=== PATIENT | female | born 1945 | race Caucasian/White ===

== ENCOUNTER 2017-05-18 16:17 | Emergency (ER) | payer MEDICARE, OTHER ==
[~2017-05-18] VITALS: Ht 154.9 cm; Wt 68.5 kg
--- NOTE | 2017-05-18 16:23 | NUR ---
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 DENIES LOC
--- NOTE | 2017-05-18 16:49 | NUR ---
DATABASE MANAGEMENT SPECIALIST AT BEDSIDE
--- NOTE | 2017-05-18 17:23 | NUR ---
Patient discharged to home in stable condition. Written and verbal after care instructions given. Patient verbalizes understanding of instruction.
[2017-05-18 17:31] VITALS: BP 122/65
== END 2017-05-18 17:56 | disposition home or self-care (01) ==
LOC: ER 16:20
DX: S52.501A Unspecified fracture of the lower end of right radius, initial encounter for closed fracture (principal); W01.0XXA Fall on same level from slipping, tripping and stumbling without subsequent striking against object, initial encounter; Y92.89 Other specified places as the place of occurrence of the external cause; Y93.89 Activity, other specified; Y99.8 Other external cause status
CPT/HCPCS: 29125; 73030; 73090; 73130; 96372; 99284; A4606; J1885; Q0162; Z7610

== ENCOUNTER 2018-09-26 13:55 | Emergency (ER) | payer MEDICARE, OTHER ==
[~2018-09-26] VITALS: Ht 154.9 cm; Wt 63.5 kg
--- NOTE | 2018-09-26 14:30 | NUR ---
presented to the ER c/o headache on and off. Alert and oriented x 4, verbally responsive. ambulatory, stable. connected to the monitor and pulse ox. Kept comfortable. will continue to monitor accordingly.
--- NOTE | 2018-09-26 15:15 | NUR ---
PT WHEELED VIA [place] FOR CT SCAN.
[2018-09-26 16:17] VITALS: BP 140/66
--- NOTE | 2018-09-26 16:18 | NUR ---
Patient discharged to home in stable condition. Written and verbal after care instructions given. Patient verbalizes understanding of instruction.
== END 2018-09-26 16:18 | disposition home or self-care (01) ==
LOC: ER 13:56
DX: G43.909 Migraine, unspecified, not intractable, without status migrainosus (principal); E03.9 Hypothyroidism, unspecified
CPT/HCPCS: 70450; 99284; A4606

== ENCOUNTER 2019-03-17 09:56 | Outpatient (CLI) | payer MEDICARE, OTHER ==
[2019-03-17] MEDS ORDERED: REGADENOSON 0.4 MG/5 ML DISP.SYRIN IVP ONE (11:00)
== END 2019-03-17 23:59 | disposition home or self-care (01) ==
LOC: RAD 09:56
PROVIDERS: ATTEND Internal Medicine Cardiovascular Disease
DX: R07.9 Chest pain, unspecified (principal); R06.00 Dyspnea, unspecified
CPT/HCPCS: 78452; A9502; J2785

== ENCOUNTER 2021-01-10 18:10 | Emergency (ER) | payer MEDICARE, BC, OTHER ==
[~2021-01-10] VITALS: Ht 144.8 cm; Wt 65.3 kg
--- NOTE | 2021-01-10 19:00 | NUR ---
SENT BY RADHA CORDERO FOR LUNG CT SCAN. PT AAOX4, VSS. RR EVEN & UNLABORED. DENIES CP, SOB, DIZZINESS, N/V AT THIS TIME. PT SEEN & EVAL'D BY DR. AVALOS. WILL CONT TO MONITOR.
[2021-01-10 21:27] LABS: BASOPHILS # (AUTO) 0.1 /CMM (0.0-0.2); BASOPHILS % (AUTO) 0.8 % (0.0-2.0); EOSINOPHILS % (AUTO) 3.3 % (0.0-6.0); HEMATOCRIT 39 % (33-45); HEMOGLOBIN 12.9 g/dL (11.5-14.8); LYMPHOCYTES # (AUTO) 2.4 /CMM (0.8-4.8); MEAN CORPUSCULAR HGB CONC 33 g/dl (31.0-36.0); MEAN CORPUSCULAR VOLUME 94 fL (82-100); MONOCYTES # (AUTO) 0.8 /CMM (0.1-1.30); MONOCYTES % (AUTO) 11.6 % (2.0-12.0); NEUTROPHILS # (AUTO) 3.2 /CMM (1.8-8.9); NEUTROPHILS % (AUTO) 48.3 % (43.0-81.0); PLATELET COUNT (AUTO) 352 /CMM (150-450); RED BLOOD CELL COUNT(AUTO) 4.21 MIL/uL (4.0-5.2); WHITE BLOOD COUNT (AUTO) 6.6 K/uL (4.3-11.0)
--- NOTE | 2021-01-10 21:56 | NUR ---
Patient discharged to home in stable condition. Written and verbal after care instructions given. Patient verbalizes understanding of instruction.
[2021-01-10 21:57] VITALS: BP 129/83
[2021-01-10 22:01] LABS: CALCIUM, SERUM 9.5 mg/dL (8.5-10.1); CARBON DIOXIDE 25 mmol/L (21-32); CHLORIDE 106 mmol/L (98-107); CREATININE 0.7 mg/dL (0.6-1.3); GLUCOSE 97 mg/dL (74-106); POTASSIUM 3.8 mmol/L (3.5-5.1); SODIUM SERUM 142 mmol/L (136-145); UREA NITROGEN, BLOOD 29 mg/dL (7-18)
== END 2021-01-10 21:57 | disposition home or self-care (01) ==
LOC: ER 18:10
DX: J94.8 Other specified pleural conditions (principal); E03.9 Hypothyroidism, unspecified; Z86.73 Personal history of transient ischemic attack (TIA), and cerebral infarction without residual deficits; Z96.641 Presence of right artificial hip joint; Z98.890 Other specified postprocedural states
CPT/HCPCS: 36415; 71045-TC; 71250-TC; 80048-TC; 84484-TC; 85025-TC

== ENCOUNTER 2024-03-09 20:56 | Emergency (ER) | payer MEDICARE, OTHER ==
[~2024-03-09] VITALS: Ht 160 cm; Wt 70.3 kg
[2024-03-09] MEDS ORDERED: FLUORESCEIN SODIUM OPHTH 1 EA STRIP ONE (22:41)
[2024-03-09] MEDS ORDERED: TETRAcaine 5 ML BOTTLE ONE (22:42)
[2024-03-09] MEDS ORDERED: CIPR5DRO18 EACHEYE (23:27)
[2024-03-09] MEDS: TETRACAINE HCL 0.5% OPHTALMIC 15 ML BOTTLE OP ONE (23:29)
[2024-03-09] MEDS: FLUORESCEIN SODIUM OPHTH 1 EA STRIP OP ONE (23:29)
[2024-03-09] MEDS ORDERED: GENTAMICIN OPTH SOLN 0.3% 5 ML BOTTLE ONE (23:32)
[2024-03-09] MEDS: GENTAMICIN OPTH SOLN 0.3% 5 ML BOTTLE OP ONE (23:34)
[2024-03-09 23:41] VITALS: BP 132/84; TEMP 98.5; O2SAT 98
== END 2024-03-09 23:42 | disposition home or self-care (01) ==
LOC: ER 21:55
DX: H10.9 Unspecified conjunctivitis (principal); Z98.890 Other specified postprocedural states